=== PATIENT | female | born 1995 | race Caucasian/White ===

== ENCOUNTER 2021-11-10 13:21 | Emergency (ER) | payer OTHER ==
[~2021-11-10] VITALS: Wt 52.6 kg
[2021-11-10 14:05] LABS: BASO % 0.4 % (0.0-1.0); HEMATOCRIT 42.6 % (37.0-47.0); LYMPH # 1.6 10*3/uL (1.3-4.4); LYMPH % 18.9 % (27.0-41.0); MEAN CELL VOLUME 85.9 fl (81.0-99.0); MEAN CORPUSCULAR HGB CONC 32.6 g/dl (33.0-37.0); MEAN PLATELET VOLUME 8.8 fl (9.6-12.3); MONO # 0.7 10*3/uL (0.1-1.0); MONO % 8.1 % (3.0-9.0); NEUT % 72.2 % (47.0-73.0); PLATELET COUNT AUTOMATED 326 10*3/uL (130-400); RED BLOOD COUNT 4.96 10*6/uL (4.10-5.10); RED CELL DISTRI WIDTH 13.2 % (0-14.5); WHITE BLOOD COUNT 8.4 10*3/uL (4.8-10.8)
[2021-11-10 14:15] LABS: ACT PARTIAL THROMBO TIME 29.4 SECONDS (20.0-32.1)
[2021-11-10 14:20] LABS: ALKALINE PHOSPHATASE 75 U/L (45-117); BUN 12 mg/dl (7-24); CHLORIDE 107 mmol/L (98-107); CREATININE 0.65 mg/dL (0.55-1.02); LIPASE 155 U/L (73-393); POTASSIUM 3.6 mmol/L (3.5-5.1); SGOT/AST 49 IU/L (3-35); SGPT/ALT 44 U/L (12-78); SODIUM 139 mmol/L (136-145); TOTAL PROTEIN 7.8 gm/dL (6.4-8.2)
[2021-11-10 14:25] LABS: BETA-HCG, QUANT < 1.0 mIU/mL (1-3)
[2021-11-10 15:15] LABS: BILIRUBIN Negative (Negative); BLOOD Negative (Negative); CLARITY Cloudy (Clear); COLOR Yellow (Yellow); GLUCOSE Negative (Negative); KETONE Trace (Negative); LEUKO ESTERASE Trace (Negative); NITRITE Negative (Negative); SPECIFIC GRAVITY >= 1.030 (1.001-1.030)
[2021-11-10 15:27] LABS: BACTERIA 1+; EPITHELIAL CELLS 16-20; MUCOUS 1+
[2021-11-10] MEDS ORDERED: LEVOFLOXACIN750 M2 PO (16:36)
== END 2021-11-10 16:54 | disposition home or self-care (01) ==
LOC: ED 13:21
PROVIDERS: Emergency Medicine
DX: J18.9 Pneumonia, unspecified organism (principal); Z20.822 Contact with and (suspected) exposure to COVID-19; Z88.0 Allergy status to penicillin; Z88.2 Allergy status to sulfonamides; Z88.1 Allergy status to other antibiotic agents